=== PATIENT | female | born 1975 | race Caucasian/White ===

== ENCOUNTER 2023-05-29 18:19 | Emergency (ER) | payer MEDICAID ==
[~2023-05-29] VITALS: Ht 172.7 cm; Wt 104.6 kg
[2023-05-29 18:21] VITALS: BP 154/74; PULSE 97; RESP 16; TEMP 98.2; O2SAT 99
[2023-05-29] MEDS ORDERED: ALBU8HFA INH (19:03)
[2023-05-29] MEDS ORDERED: PRED20TA PO (19:03)
== END 2023-05-29 19:21 | disposition home or self-care (01) ==
LOC: ER 18:20
DX: J06.9 Acute upper respiratory infection, unspecified (principal)
CPT/HCPCS: 71046; 99283

== ENCOUNTER 2023-06-30 10:24 | Emergency (ER) | payer MEDICAID ==
[~2023-06-30] VITALS: Ht 172.7 cm; Wt 101.4 kg
[2023-06-30] MEDS ORDERED: PRED10TA23 PO (11:40)
[2023-06-30] MEDS ORDERED: HYDR25CA PO (11:41)
[2023-06-30 12:02] VITALS: BP 131/76; PULSE 68; RESP 16; TEMP 98.1; O2SAT 100
== END 2023-06-30 12:05 | disposition home or self-care (01) ==
LOC: ER 10:25
DX: L23.9 Allergic contact dermatitis, unspecified cause (principal); Z88.2 Allergy status to sulfonamides; Z79.899 Other long term (current) drug therapy
CPT/HCPCS: 99283

== ENCOUNTER 2023-07-30 08:46 | Emergency (ER) | payer MEDICAID ==
[~2023-07-30] VITALS: Ht 172.7 cm; Wt 100.0 kg
[~2023-07-30 08:46] MED LIST: HYDR25CA PO; PRED10TA23 PO
[2023-07-30 08:59] VITALS: TEMP 97.8
[2023-07-30] MEDS: LORazepam 1 MG tablet PO ONE (09:58)
[2023-07-30] MEDS ORDERED: LORA-269 PO (10:35)
[2023-07-30 10:52] VITALS: BP 114/71; PULSE 71; RESP 16; O2SAT 100
== END 2023-07-30 10:54 | disposition home or self-care (01) ==
LOC: ER 08:46
DX: R45.89 Other symptoms and signs involving emotional state (principal); Z88.2 Allergy status to sulfonamides; Z79.899 Other long term (current) drug therapy
CPT/HCPCS: 99283

== ENCOUNTER 2025-03-11 19:01 | Emergency (ER) | payer MEDICAID ==
[~2025-03-11] VITALS: Ht 172.7 cm; Wt 109.9 kg
[~2025-03-11 19:01] MED LIST changes: +LORA-269 PO; -PRED10TA23 PO
[2025-03-11 19:11] VITALS: TEMP 98.6
--- NOTE | 2025-03-11 19:34 | RADIOLOGY REPORT ---
CHEST RADIOGRAPH INDICATION: CP TECHNIQUE: Single frontal view of the chest was obtained COMPARISON: None FINDINGS: Lines and Tubes: None Lungs: No focal consolidation. Pleura: No effusion. No pneumothorax. Cardiomediastinal contours: Unremarkable Bones: No acute osseous abnormality. IMPRESSION: No acute cardiopulmonary disease.
[2025-03-11 19:37] LABS: MEAN PLATELET VOLUME 8.3 FL (7.4-10.4); RED CELL DISTRIBUTION WIDTH 13.6 % (11.5-14.5)
[2025-03-11 19:53] LABS: CREATININE 1.05 MG/DL (0.40-0.90); PRO BRAIN NATRIURETIC PEPTIDE 214 PG/ML (0-125); TOTAL CARBON DIOXIDE 30.9 MMOL/L (24-32); eCRCL 65 ML/MIN; eGFR 55 ML/MIN
--- NOTE | 2025-03-11 20:30 | Physician Documentation ---
History of Present Illness ~ Chief Complaint: Chest Pain Stated Complaint: CHEST PAIN/SOB Time Seen by MD: 20:14 Primary Medical Doctor: [facility] Source: patient Mode of Arrival: POV, Ambulatory Exam Limitations: no limitations HEART Score: 3 HPI 50 year old female patient presents to the ED with concerns of chest pain and tightness onset this evening. Patient could feel her chest becoming progressively tighter and states she felt it in her throat which made her stress out. She also began to feel lightheaded at this time. She is not experiencing much pain in the ED but, there is pressure center. She has history of panic attacks but states this does not feel like her typical panic attack. Patient denies any other associated symptoms. Patient denies any other alleviating or exacerbating factors at this time. Medication Reconciliation Allergies: Coded Allergies: Sulfa (Sulfonamide Antibiotics) (Unverified Allergy, Intermediate, RASH, 03/11/25) Scheduled Hydroxyzine Pamoate (Vistaril), 1-2 CAP PO qhs Lorazepam (Ativan), 1 TAB PO Q8H Past Medical History Past Medical History: No Pertinent History Drug Use: none Lives In: Home Review of Systems All Other Systems at this time: Reviewed and Negative ROS As stated above in the HPI, otherwise all systems are reviewed and negative. Physical Exam Vital Signs: RN Vital Signs have been reviewed: Yes, Temperature: 98.6, Source: Temporal, Heart Rate: 86, Respiratory Rate: 16, BP: 137/81, Pulse Oximetry: 98, Weight: 109.900 Oxygen Flow Rate: 0 Pulse Oximetry Reflects: adequate oxygenation Physical Exam General: Patient is awake, alert, oriented x4 in no acute distress and well appearing.~ Head: Normocephalic and atraumatic. Eyes: Conjunctival normal. EOMI. PERRL. ENT: Mucous membranes moist. Neck: Supple, trachea is midline. Chest: Clear to auscultation bilaterally without rales, rhonchi, or wheezes. There is no accessory muscle use or retractions. Cardiac: RRR without murmurs, gallops, or rubs. Abd: Soft, nondistended, nontender, with normoactive bowel sounds. No guarding, rebound, or rigidity. Extremities: Normal strength. Normal range of motion. No deformities or edema. Back: No midline spinal or CVA tenderness. Skin: Warm and dry with no significant rash appreciated. Neuro: Cranial nerves II-XII grossly intact. No focal neuro deficits. Patient ambulating without difficulty. Progress Results/Orders Results/Orders Orders - KLEBER LOU MD Chest,Single View (03/11/25 19:24) Monitor (03/11/25 19:14) Saline Lock (03/11/25 19:14) Oxygen (03/11/25 19:14) Electrocardiogram (03/11/25 19:14) Hs Troponin I W Calculations (03/11/25 22:14) Completed Orders - KLEBER LOU MD Chest,Single View (03/11/25 19:24) Cbc/Diff (03/11/25 19:14) BMP (03/11/25 19:14) PBNP (03/11/25 19:14) Hs Troponin I W Calculations (03/11/25 19:14) Hs Troponin I W Calculations (03/11/25 21:14) Vital Signs 03/11/25 03/11/25 03/11/25 03/11/25 19:11 20:04 20:08 22:15 Temp 98.6 Pulse 95 86 68 Resp 15 16 16 12 B/P (MAP) 128/90 137/81 (99) 123/87 Pulse Ox 97 98 96 O2 Flow Rate 0 Laboratory Tests Test 03/11/25 19:23 03/11/25 21:29 White Blood Count 5.4 Red Blood Count 4.78 Hemoglobin 13.8 Hematocrit 40.7 Mean Corpuscular Volume 85.3 Mean Corpuscular Hemoglobin 28.9 Mean Corpuscular Hemoglobin Concent 33.8 Red Cell Distribution Width 13.6 Platelet Count 282 Mean Platelet Volume 8.3 Neutrophils (%) (Auto) 61.8 Lymphocytes (%) (Auto) 29.7 Monocytes (%) (Auto) 6.1 Eosinophils (%) (Auto) 1.6 Basophils (%) (Auto) 0.8 Neutrophils # (Auto) 3.3 Lymphocytes # (Auto) 1.6 Monocytes # (Auto) 0.3 Eosinophils # (Auto) 0.1 Basophils # (Auto) 0.0 CBC Comment Sodium Level 143 Potassium Level 3.8 Chloride Level 105 Carbon Dioxide Level 30.9 Anion Gap 7 L Blood Urea Nitrogen 12 Creatinine 1.05 H Estimated GFR/1.73 m2 55 BUN/Creatinine Ratio 11.4 Glucose Level 113 H Calcium Level 9.1 Troponin I High Sensitivity 4 4 Pro-B-Type Natriuretic Peptide 214 H Albumin 3.8 Chemistry Comments Troponin I High Sens Percent Delta 0 Troponin I Hi Sens Absolute Change 0 EKG/XRAY/CT/US/VASC/MRI EKG : Intepreting Monitor?: No Additional Comment 1917: Normal sinus rhythm rate of 95, left axis deviation, no ST changes. EKG interpreted by Dr. Lou. Chest X-Ray : Interpreted By: radiologist Views: 1 VIEW Additional Comments CHEST RADIOGRAPH INDICATION: CP TECHNIQUE: Single frontal view of the chest was obtained COMPARISON: None FINDINGS: Lines and Tubes: None Lungs: No focal consolidation. Pleura: No effusion. No pneumothorax. Cardiomediastinal contours: Unremarkable Bones: No acute osseous abnormality. IMPRESSION: No acute cardiopulmonary disease. Electronically Signed by:ANNY SORTO DO Date & Time: 03/11/251931 Dictated by: ANNY SORTO DO Dictation date and time: 03/11/251921 Primary Care Provider: NO PRIMARY CARE PROVIDER cc: KLEBER LOU MD ~ Medical Decision Making Additional information obtaine: old records Findings Patient presents to the emergency room for evaluation of chest pain that has per HPI. Differentials include but are not limited to ACS, musculoskeletal pain, anxiety, pulmonary embolism, aortic pathology, pneumothorax therefore emergent labs and imaging indicated. Labs and imaging reassuring. Troponins negative x2. Patient's heart score is three. No calf tenderness no tachycardia no hypoxia and I do not feel patient requires investigation into possible pulmonary embolism. The need to follow up with a doctor discussed. ER precautions discussed. Heart Score: 3 Differential Dx:Considerations: Include: angina, aortic dissection, chest wall pain, cholelithiasis, CHF, costochondritis, esophageal reflux/spasm, gastritis, herpes zoster, myocardial infarction, pericarditis, pleuritis, pancreatitis, pneumonia, pneumothorax, pulmonary embolus, other Departure Time of Disposition: 22:11 Disposition: 01 HOME / SELF CARE / HOMELESS Impression: Primary Impression: Chest pain Qualified Codes: R07.9 - Chest pain, unspecified Condition: Stable Discharge Instructions: Nonspecific Chest Pain, Adult Additional Instructions: Follow up with your PCP for further evaluation and care. Please return to the ED if you develop any new or worsening symptoms. Referrals: NO PRIMARY CARE PROVIDER (PCP) Education Educated: Patient Educated regarding: diagnosis, treatment, need for follow up Signature Scribe Signature: Scribed for Kleber Lou MD by Apple Antonio . 03/11/25 20:51 Attestation: The note accurately reflects work and decisions made by me.Kleber Lou MD 03/11/25 22:22 KLEBER LOU MD Mar 11, 2025 20:30 APPLE OSORIO Mar 11, 2025 20:51
[2025-03-11 22:15] VITALS: BP 123/87; PULSE 68; RESP 12; O2SAT 96
--- NOTE | 2025-03-12 05:39 | ELECTROCARDIOGRAPH REPORT ---
[facility] Test Date: 2025-03-11 Test Time: 19:18:11 Pat Name: APPLE GUAJARDO Department: EMERGENCY ROOM Patient [id number] Room: Gender: F [employer] Spr[employer] Tender: : 1975 Requested By: TERESE FARMER Order Number: [id number] Reading MD: Dr. Puneet Voss Measurements Intervals [place]ow Rate: 95 P: -20 OK: 141 QRS: -41 QRSD: 88 T: 5 QT: 338 QTc: 425 Interpretive Statements Sinus rhythm Probable left atrial enlargement Left anterior fascicular block Borderline T wave abnormalities Baseline wander in lead(s) I,aVL Electronically Signed On 03-12-2025 21:12:[address] Puneet Voss Please click the below link to view image of tracing.
== END 2025-03-11 22:17 | disposition home or self-care (01) ==
LOC: ER 19:02
DX: R07.9 Chest pain, unspecified (principal); Z88.2 Allergy status to sulfonamides; Z79.899 Other long term (current) drug therapy
CPT/HCPCS: 36415; 71045; 80048; 83880; 84484; 85025; 93005; 99285